=== PATIENT | female | born 1975 | race Hispanic/Latino ===

== ENCOUNTER → 2018-08-08 | Outpatient (CLI) | payer OTHER ==
--- NOTE | 2018-08-08 15:18 | Diagnostic Imaging Report ---
Right knee MRI without contrast. History: Knee pain. Lateral meniscus tear. Skiing accident. Decreased range of motion. Comparison: None. Technique: Multiplanar multi-sequence MRI of the knee without contrast. Findings: Medial compartment: No meniscal tear, cartilage abnormality, or MCL tear. Lateral compartment: No meniscal tear or cartilage abnormality. The LCL complex is normal. Intercondylar notch: Full-thickness tear of the anterior cruciate ligament. A stump of tissue seen at the tibial insertion site. This is best seen on sagittal image 20. The posterior cruciate ligament is intact. Patellofemoral compartment: Regions of full-thickness articular cartilage loss in the patellofemoral compartment with mild underlying bone marrow edema. Extensor mechanism: The quadriceps and patellar tendons are normal. Other findings: There is a joint effusion and synovitis. There is no acute fracture, subluxation or avascular necrosis. IMPRESSION: Full-thickness anterior cruciate ligament tear. Regions of full-thickness articular cartilage loss in the patellofemoral compartment with underlying bone marrow edema. No lateral meniscus tear is seen. Signed by: Dr. Pierre Esteban M.D. on 08/08/2018 3:15 PM
== END ==
LOC: MRI 13:38
PROVIDERS: ATTEND Specialist
DX: S83.281A Other tear of lateral meniscus, current injury, right knee, initial encounter (principal)

== ENCOUNTER 2018-08-31 14:40 | Outpatient (RCR) | payer OTHER | END 2018-09-20 | LOC: PT 14:40 | PROVIDERS: ATTEND Specialist | DX: M25.561 Pain in right knee (principal); M62.81 Muscle weakness (generalized) ==